=== PATIENT | female | born 1950 | race Caucasian/White ===

== ENCOUNTER 2018-08-11 17:44 | Inpatient (IN) | payer BC, MEDICARE ==
[~2018-08-11] VITALS: Ht 165.1 cm; Wt 54.9 kg
[~2018-08-11 17:44] MED LIST: ATOR10TA PO; DIPH1TAB PO; HYDR-4384 PO; INSU100V27 SQ; INSU100V7 SQ; LEVO100T9 PO; LOPE2CAP40 PO; MAGN200T5 PO; MAGN400T6 PO; MESA500C PO; METF-440 PO; VALS160T2 PO; VALS160T29 PO
--- NOTE | 2018-08-11 18:16 | NUR ---
[id number] FRM B&C FOR MORE ALTERED THAN NORMAL X TODAY, BG 189 STUDENT SERVICES DEAN. PT AMERICAN-SPEAKING, WITH SOME UNDERSTANDING OF [place]. ABLE TO ANSWER SOME QUESTIONS APPROPRIATELY. AOX2, SLIGHTLY TACHYCARDIC, RR EVEN AND UNLABORED ON RA. SKIN INTACT, NO ACUTE DISTRESS NOTED. READY FOR EVAL.
--- NOTE | 2018-08-11 18:27 | NUR ---
XRAY AT BEDSIDE
[2018-08-11 18:40] LABS: BASOPHILS # (AUTO) 0.1 /CMM (0.0-0.2); BASOPHILS % (AUTO) 0.7 % (0.0-2.0); EOSINOPHILS % (AUTO) 0.3 % (0.0-6.0); HEMATOCRIT 39 % (33-45); LYMPHOCYTES # (AUTO) 1.8 /CMM (0.8-4.8); LYMPHOCYTES % (AUTO) 14.3 % (20.0-44.0); MEAN CORPUSCULAR HGB CONC 33 g/dl (31.0-36.0); MEAN CORPUSCULAR VOLUME 93 fL (82-100); MONOCYTES # (AUTO) 1.9 /CMM (0.1-1.30); MONOCYTES % (AUTO) 15.1 % (2.0-12.0); NEUTROPHILS # (AUTO) 8.9 /CMM (1.8-8.9); NEUTROPHILS % (AUTO) 69.6 % (43.0-81.0); PLATELET COUNT (AUTO) 445 /CMM (150-450); RED BLOOD CELL COUNT(AUTO) 4.19 MIL/uL (4.0-5.2); WHITE BLOOD COUNT (AUTO) 12.7 K/uL (4.3-11.0)
--- NOTE | 2018-08-11 18:47 | NUR ---
URINE COLLECTED VIA STRAIGHT CATH PER PROTOCOL AND SENT TO STAT LAB
[2018-08-11 18:53] LABS: BILIRUBIN,URINE LARGE (NEGATIVE); BLOOD, URINE Small Ery/uL (NEGATIVE); COLOR,URINE Yellow (YELLOW); KETONES,URINE >=160 (NEGATIVE); LEUKOCYTE ESTERASE ,URINE Small (NEGATIVE); NITRITE, URINE Negative (NEGATIVE); PROTEIN,URINE 30 mg/dl (NEGATIVE); UGLUCOSE 500 MG/DL mg/dL (NEGATIVE); UROBILINOGEN,URINE 0.2 EU/dL (0.2)
[2018-08-11 18:54] LABS: CALCIUM, SERUM 9.9 mg/dL (8.5-10.1); CARBON DIOXIDE 26 mmol/L (21-32); CHLORIDE 104 mmol/L (98-107); CREATININE 1.2 mg/dL (0.6-1.3); GLUCOSE 201 mg/dL (74-106); SODIUM SERUM 141 mmol/L (136-145); UREA NITROGEN, BLOOD 26 mg/dL (7-18)
[2018-08-11 19:01] LABS: APPEARANCE,URINE SLIGHTLY HAZY (CLEAR)
[2018-08-11 19:08] LABS: ALANINE AMINOTRANSFERASE 17 U/L (12-78); ALBUMIN 2.5 g/dL (3.4-5.0); ALKALINE PHOSPHATASE 112 U/L (46-116); ASPARTATE AMINOTRANSFERASE 21 U/L (15-37); BILIRUBIN,TOTAL 0.3 mg/dL (0.2-1.0); TOTAL PROTEIN, SERUM 7.7 g/dL (6.4-8.2)
[2018-08-11 19:10] LABS: BACTERIA,URINE Moderate /HPF (None Seen); SQUAMOUS EPITHELIAL CELL,UR Few /HPF (None Seen)
[2018-08-11 19:17] LABS: LYMPHOCYTES % (MANUAL) 15 % (16-48); NEUTROPHILS % (MANUAL) 69 (42-76)
[2018-08-11 19:18] LABS: EOSINOPHILS % (MANUAL) 1 % (0-4); MONOCYTES % (MANUAL) 15 % (0-11.0)
[2018-08-11] MEDS ORDERED: LEVO112T7 PO (19:33)
[2018-08-11] MEDS ORDERED: TEMA15CA PO (19:33)
[2018-08-11] MEDS ORDERED: INSU100V27 SQ ×2 (19:33→19:50)
[2018-08-11] MEDS ORDERED: DIVA250T PO (19:33)
[2018-08-11] MEDS ORDERED: MEMA10TA21 PO (19:33)
[2018-08-11] MEDS ORDERED: PIOG15TA8 PO (19:33)
[2018-08-11] MEDS ORDERED: VALP250C PO (19:33)
[2018-08-11] MEDS ORDERED: FERR325T23 PO (19:33)
[2018-08-11] MEDS ORDERED: ONDA4TAB10 PO (19:33)
[2018-08-11] MEDS ORDERED: INSU100I26 SQ ×2 (19:33)
[2018-08-11] MEDS ORDERED: PANT40TA4 PO (19:33)
--- NOTE | 2018-08-11 19:33 | NUR ---
BED 115-2
--- NOTE | 2018-08-11 19:47 | NUR ---
Patient is resting comfortably in bed with eyes closed. Easily aroused. VSS
--- NOTE | 2018-08-11 20:20 | NUR ---
REPORT GIVEN TO CLIFFORD JEAN-BAPTISTE FOR NITHYA, ISAIAS 108
[2018-08-11] MEDS ORDERED: CEFTRIAXONE 1GM BAG (ER ONLY) 50 ML IV ONE ×2 (20:23→20:41)
[2018-08-11] MEDS ORDERED: CEFTRIAXONE 1GM BAG (ER ONLY) 1 GM/50 ML PIGGYBACK IV ONE (20:30)
--- NOTE | 2018-08-11 20:57 | NUR ---
[facility]
[2018-08-11 21:00] VITALS: BP 167/85
[2018-08-11] MEDS ORDERED: IV NS 0.9% 500 ML BAG IV ONE (21:00)
[2018-08-11] MEDS ORDERED: ONDANSETRON HCL/PF 4 MG/2 ML VIAL IVP PRN (21:30)
[2018-08-11] MEDS ORDERED: ACETAMINOPHEN 325 MG TABLET PO PRN (21:30)
[2018-08-11] MEDS ORDERED: MAGNESIUM HYDROXIDE 30 ML UDC PO PRN (21:30)
[2018-08-11] MEDS ORDERED: Z GUARD REMEDY 2 OZ OINT TP PRN (21:30)
[2018-08-11] MEDS ORDERED: MAG HYDROX/AL HYDROX/SIMETH 30 ML UDC PO PRN (21:30)
[2018-08-11] MEDS ORDERED: HYDROCODONE/APAP 5/325MG 1 EACH TABLET PO PRN (21:30)
--- NOTE | 2018-08-11 21:30 | NUR ---
EARLY INTERVENTION SPECIALIST OPENING NOTES RECEIVED REPORT FROM HOME HEALTH SCHEDULER & ADMITTED PATIENT TO ROOM 108 W/ DX ALTERED MENTAL STATUS UNDER CARE OF DAPHNIE MARIE. PATIENT A/A/O X1 TO NAME AND MOSTLY PARAGUAYAN-SPEAKING BUT ABLE TO FOLLOW SIMPLE COMMANDS & STATE PAIN. BREATHING EVEN & UNLABORED, TOLERATING O2 @ 2LPM VIA NC. NO RESPIRATORY DISTRESS NOTED. ON TELE W/ SINUS RHYTHM, HR 90S. LEFT WRIST IV #20 INTACT & PATENT W/ DRESSING CDI, NO SIGNS OF INFILTRATION NOTED. DENIES ANY PAIN OR DISCOMFORT @ THIS TIME. SKIN ASSESSMENT DONE & ORIENTED TO ROOM & STAFF. SAFETY MEASURES IN PLACE W/ SIDE RAILS UP & BED ALARM ON. CALL LIGHT PLACED WITHIN REACH & INSTRUCTED TO USE CALL LIGHT FOR ASSISTANCE. WILL CONTINUE TO MONITOR & CARRY OUT ADMITTING ORDERS.
[2018-08-11] MEDS: TEMAZEPAM 15 MG CAPSULE PO SCH (22:00)
[2018-08-11] MEDS: BLOOD SUGAR DIAGNOSTIC 1 EACH STRIP IN SCH (22:00)
[2018-08-11] MEDS: INSULIN REGULAR, HUMAN 100 UNIT/ML 3 ML VIAL SQ PRN (23:16)
[2018-08-11] MEDS: ATORVASTATIN 10 MG TABLET PO SCH (23:18)
[2018-08-12] VITALS: BP 160/83
[2018-08-12] MEDS: IV NS 0.9% 1,000 ML IV PRN ×2 (03:46→16:51)
[2018-08-12 04:00] VITALS: BP 140/78
--- NOTE | 2018-08-12 06:30 | NUR ---
HOUSING OFFICER NOTES SPOKE TO DAPHNIE MARIE REGARDING CHANGING THE FREQUENCY OF PATIENT'S HOME MED, DEPAKOTE TO Q12H INSTEAD OF DAILY. PER DAPHNIE, INFORM ATTENDING MD IN AM. ENDORSED TO AM NURSE.
[2018-08-12 07:39] LABS: BASOPHILS % (AUTO) 0.4 % (0.0-2.0); EOSINOPHILS % (AUTO) 0.3 % (0.0-6.0); HEMATOCRIT 36 % (33-45); HEMOGLOBIN 11.8 g/dL (11.5-14.8); LYMPHOCYTES # (AUTO) 1.6 /CMM (0.8-4.8); LYMPHOCYTES % (AUTO) 13.9 % (20.0-44.0); MEAN CORPUSCULAR HGB CONC 33 g/dl (31.0-36.0); MEAN CORPUSCULAR VOLUME 93 fL (82-100); MONOCYTES # (AUTO) 1.4 /CMM (0.1-1.30); MONOCYTES % (AUTO) 12.4 % (2.0-12.0); NEUTROPHILS # (AUTO) 8.4 /CMM (1.8-8.9); PLATELET COUNT (AUTO) 356 /CMM (150-450); RED BLOOD CELL COUNT(AUTO) 3.85 MIL/uL (4.0-5.2); WHITE BLOOD COUNT (AUTO) 11.5 K/uL (4.3-11.0)
[2018-08-12 08:00] VITALS: BP 154/72
[2018-08-12 08:00] LABS: THYROID STIMULATING HORMONE 1.916 uIU/mL (0.358-3.74)
--- NOTE | 2018-08-12 08:00 | NUR ---
RN NOTE: RECEIVED PATIENT IN BED, ASLEEP, BUT AROUSABLE WITH TACTILE STIMULATION. RESPIRATION EVEN AND UNLABORED, SATURATING 98% WITH O2 2L/MIN VIA NC. ON MILL HOUSE SUPERVISOR SR HR= 86. NO FACIAL GRIMACING AND DENIED ANY PAIN OR DISCOMFORT. BREAKFAST WAS OFFERED, BUT PATIENT ATE 25% OF HER MEAL AND STARTED CLENCHING HER TEETH AND STATED "NO MORE. I DON'T WANT TO EAT ANY MORE." SPOKE WITH DAUGHTER THANIA AND INFORMED HER ABOUT IT, SHE INSISTED THAT PATIENT NEEDED TO BE ENCOURAGED MORE TO EAT. SHE ALSO VERBALIZED THAT SHE DOES NOT WANT ANY PSYCHOTROPIC MEDICATIONS TO THE PATIENT. AND SHE WANTED TO INFORM THE DOCTOR ABOUT HER MOTHER GETTING UTI A FEW MONTHS AGO. WILL RELAY THIS INFORMATION TO Lester BROWN NP WHEN HE MAKES HIS ROUNDS TO THE UNIT. (L) WRIST IV SITE WAS NOTED INTACT AND PATENT INFUSING NS@75ML/HR. BED ALARMED AND LOCKED AT ALL TIMES. CALL LIGHT WITHIN REACH. NEEDS ANTICIPATED.
[2018-08-12] MEDS: BLOOD SUGAR DIAGNOSTIC 1 EACH STRIP IN SCH ×4 (08:10→22:34)
[2018-08-12 08:19] LABS: CALCIUM, SERUM 9.4 mg/dL (8.5-10.1); CREATININE 1.2 mg/dL (0.6-1.3); MAGNESIUM 1.8 mg/dL (1.8-2.4); PHOSPHORUS 2.8 mg/dL (2.5-4.9); POTASSIUM 3.8 mmol/L (3.5-5.1)
[2018-08-12] MEDS: LEVOTHYROXINE SODIUM 112 MCG TABLET PO SCH (08:20)
[2018-08-12] MEDS: PANTOPRAZOLE 40 MG TABLET.DR PO SCH (08:20)
[2018-08-12] MEDS: INSULIN REGULAR, HUMAN 100 UNIT/ML 3 ML VIAL SQ PRN ×2 (08:24→12:32)
--- NOTE | 2018-08-12 08:55 | NUR ---
RN NOTE: RECEIVED A CRITICAL LAB FOR GLUCOSE 353 AND Lester BROWN DNP WAS IN THE UNIT. Lester BROWN DNP WAS INFORMED OF THE GLUCOSE 353 AND THE CURRENT MEDICATIONS OF THE PATIENT. Lester BROWN DNP WITH NO NEW ORDER AT THIS TIME.
[2018-08-12] MEDS ORDERED: VALSARTAN 80 MG TABLET PO PRN (09:00)
[2018-08-12] MEDS ORDERED: DIVALPROEX SODIUM 250 MG PO SCH (09:00)
[2018-08-12] MEDS: PIOGLITAZONE HCL 15 MG TABLET PO SCH (09:49)
[2018-08-12] MEDS: MAGNESIUM OXIDE 400 MG TABLET PO SCH (09:50)
[2018-08-12] MEDS: FERROUS SULFATE (325 MG) 325 MG/TAB TABLET PO SCH (09:50)
[2018-08-12] MEDS: MEMANTINE HCL 5 MG TABLET PO SCH ×2 (09:50→16:18)
[2018-08-12] MEDS: ENOXAPARIN SODIUM 40 MG/0.4 ML DISP.SYRIN SQ SCH (09:52)
[2018-08-12] MEDS: VALPROIC ACID 250 MG/5 ML UDC PO SCH ×2 (09:55→16:18)
[2018-08-12] MEDS: INSULIN GLARGINE, 100 UNIT/ML CARTRIDGE SQ SCH ×2 (09:59→17:51)
[2018-08-12 12:00] VITALS: BP 159/72
[2018-08-12 16:00] VITALS: BP 140/73
--- NOTE | 2018-08-12 17:53 | NUR ---
RN NOTE: Lester BROWN DNP WAS INFORMED ABOUT THE BLOOD SUGAR OF 78. DNP OK TO HOLD THE DOSE OF LANT[facility] 12 UNIT @ 1800.
[2018-08-12] MEDS ORDERED: INSULIN GLARGINE, 100 UNIT/ML CARTRIDGE SQ SCH (18:00)
[2018-08-12 20:00] VITALS: BP 145/83
--- NOTE | 2018-08-12 20:00 | NUR ---
RN NOTE: BEDSIDE REPORT WAS GIVEN TO PM SHIFT NURSE FOR CONTINUITY OF CARE AND DAUGHTER THANIA WAS PRESENT AT THE BEDSIDE.
[2018-08-12] MEDS: CEFTRIAXONE 1 G in IV D5W 50 ML IV SCH (21:36)
[2018-08-12] MEDS: TEMAZEPAM 15 MG CAPSULE PO SCH (22:33)
[2018-08-12] MEDS: ATORVASTATIN 10 MG TABLET PO SCH (22:34)
[2018-08-13] VITALS: BP 129/80
[2018-08-13 04:00] VITALS: BP 120/70
--- NOTE | 2018-08-13 07:30 | NUR ---
INITIAL PATIENT IN BED SLEEPING BUT AROUSIBLE W/ DX ALTERED MENTAL STATUS UNDER CARE OF DAPHNIE MARIE. PATIENT A/A/O X1 TO NAME ABLEE TO FOLLOW SIMPLE COMMANDS & STATE PAIN. BREATHING EVEN & UNLABORED, TOLERATING O2 @ 2LPM VIA NC. NO RESPIRATORY DISTRESS NOTED. ON TELE W/ SINUS RHYTHM, HR 67. LEFT WRIST IV #20 INTACT & PATENT W/ DRESSING CDI, NO SIGNS OF INFILTRATION NOTED. DENIES ANY PAIN OR DISCOMFORT @ THIS TIME. SKIN ASSESSMENT DONE & ORIENTED TO ROOM & STAFF. SAFETY MEASURES IN PLACE W/ SIDE RAILS UP & BED ALARM ON. CALL LIGHT PLACED WITHIN REACH & INSTRUCTED TO USE CALL LIGHT FOR ASSISTANCE. WILL CONTINUE TO MONITOR.
[2018-08-13 08:00] VITALS: BP 113/66
[2018-08-13] MEDS: PANTOPRAZOLE 40 MG TABLET.DR PO SCH (08:02)
[2018-08-13] MEDS: LEVOTHYROXINE SODIUM 112 MCG TABLET PO SCH (08:02)
[2018-08-13] MEDS: IV NS 0.9% 1,000 ML IV PRN ×2 (08:11→21:29)
[2018-08-13] MEDS: BLOOD SUGAR DIAGNOSTIC 1 EACH STRIP IN SCH ×4 (08:11→21:24)
[2018-08-13] MEDS: INSULIN REGULAR, HUMAN 100 UNIT/ML 3 ML VIAL SQ PRN ×3 (08:16→17:38)
--- NOTE | 2018-08-13 08:38 | NUR ---
WOUND CARE CONSULT: PT PRESENTS WITH INCONTINENCE AND RASH WITH SKIN IRRITATION TO BUTTOCKS, PERINEUM AND GROIN AREAS, PRESENT ON ADMISSION. RECOMMENDATIONS MADE FOR SKIN CARE AND PROTECTION. DISCUSSED WITH NURSING STAFF. WILL SEE PRN. FARLEY IN AGREEMENT WITH PLAN OF CARE. CURRENT CURTIS SCORE IS 14. Addendum: 08/13/18 at 0839 by ISA SIMON WNDNU Amended: Links added.
[2018-08-13] MEDS: MAGNESIUM OXIDE 400 MG TABLET PO SCH (09:35)
[2018-08-13] MEDS: PIOGLITAZONE HCL 15 MG TABLET PO SCH (09:35)
[2018-08-13] MEDS: VALPROIC ACID 250 MG/5 ML UDC PO SCH ×2 (09:35→17:31)
[2018-08-13] MEDS: MEMANTINE HCL 5 MG TABLET PO SCH ×2 (09:36→17:31)
[2018-08-13] MEDS: FERROUS SULFATE (325 MG) 325 MG/TAB TABLET PO SCH (09:36)
[2018-08-13] MEDS: ENOXAPARIN SODIUM 40 MG/0.4 ML DISP.SYRIN SQ SCH (09:38)
[2018-08-13] MEDS: INSULIN GLARGINE, 100 UNIT/ML CARTRIDGE SQ SCH ×2 (09:39→17:44)
[2018-08-13] MEDS: CLOTRIMAZOLE 1% 15 GM TUBE TP SCH ×2 (09:51→17:32)
[2018-08-13 12:00] VITALS: BP_SYST 115; BP_DIAS 65; BP_DIAS 67
--- NOTE | 2018-08-13 15:18 | NUR ---
SPOKE WITH DAUGHTER THANIA CALDERON WHO HAS DPOA AND CONSENTED FOR COUSIN THANIA STEPHENS TO HAVE PT INFORMATION UPDATES.
[2018-08-13 16:00] VITALS: BP_SYST 101; BP_SYST 117; BP_DIAS 64; BP_DIAS 68
--- NOTE | 2018-08-13 18:16 | NUR ---
closing Patient is resting comfortably in bed with eyes closed. Easily aroused. VSS all needs attended to pt ate 50% of all meals remains on 1/2 N/S at 75 ml/hr iv site clean dry intact will endorse care to table games shift manager RN for continuity of care
--- NOTE | 2018-08-13 19:40 | NUR ---
RN INITIAL NOTES RECEIVED PATIENT REPORT FROM AM RN. PATIENT IN BED SLEEPING BUT AROUSAL WITH SPEECH. W/ DX ALTERED MENTAL PATIENT A/A/O X1 TO NAME ABLE TO FOLLOW SIMPLE COMMANDS & STATE PAIN . BREATHING EVEN & UNLABORED, TOLERATING O2 @ 2LPM VIA NC. NO RESPIRATORY DISTRESS NOTED. LEFT WRIST IV #20 INTACT & PATENT W/ DRESSING CDI WITH IVF ORDERED, NO SIGNS OF INFILTRATION NOTED. DENIES ANY PAIN OR DISCOMFORT @ THIS TIME. SKIN ASSESSMENT DONE & ORIENTED TO ROOM, UNIT & STAFF. SAFETY MEASURES IN PLACE W/ SIDE RAILS UPX2 & BED ALARM ON. CALL LIGHT PLACED WITHIN REACH & INSTRUCTED TO USE CALL LIGHT FOR ASSISTANCE. WILL CONTINUE TO MONITOR PATIENT CLOSELY.
[2018-08-13 20:00] VITALS: BP 116/75
[2018-08-13] MEDS: CEFTRIAXONE 1 G in IV D5W 50 ML IV SCH (21:22)
[2018-08-13] MEDS: TEMAZEPAM 15 MG CAPSULE PO SCH (21:23)
[2018-08-13] MEDS: ATORVASTATIN 10 MG TABLET PO SCH (21:24)
[2018-08-13] MEDS: DEXTROSE 50%-WATER 50 ML DISP.SYRIN IV PRN (21:36)
[2018-08-14 04:00] VITALS: BP 120/66
[2018-08-14 07:02] LABS: BASOPHILS # (AUTO) 0.1 /CMM (0.0-0.2); BASOPHILS % (AUTO) 0.9 % (0.0-2.0); EOSINOPHILS % (AUTO) 1.6 % (0.0-6.0); HEMATOCRIT 37 % (33-45); HEMOGLOBIN 12.4 g/dL (11.5-14.8); LYMPHOCYTES # (AUTO) 1.8 /CMM (0.8-4.8); LYMPHOCYTES % (AUTO) 26.1 % (20.0-44.0); MEAN CORPUSCULAR HGB CONC 34 g/dl (31.0-36.0); MEAN CORPUSCULAR VOLUME 93 fL (82-100); MONOCYTES # (AUTO) 0.7 /CMM (0.1-1.30); MONOCYTES % (AUTO) 10.6 % (2.0-12.0); NEUTROPHILS # (AUTO) 4.2 /CMM (1.8-8.9); NEUTROPHILS % (AUTO) 60.8 % (43.0-81.0); PLATELET COUNT (AUTO) 303 /CMM (150-450); RED BLOOD CELL COUNT(AUTO) 3.95 MIL/uL (4.0-5.2)
[2018-08-14 07:20] LABS: CALCIUM, SERUM 8.9 mg/dL (8.5-10.1); CREATININE 0.6 mg/dL (0.6-1.3); POTASSIUM 3.9 mmol/L (3.5-5.1)
[2018-08-14 08:00] VITALS: BP_SYST 104; BP_SYST 133; BP_DIAS 59; BP_DIAS 65
[2018-08-14] MEDS: BLOOD SUGAR DIAGNOSTIC 1 EACH STRIP IN SCH ×4 (08:23→21:38)
[2018-08-14] MEDS: VALPROIC ACID 250 MG/5 ML UDC PO SCH ×2 (08:24→17:42)
[2018-08-14] MEDS: PIOGLITAZONE HCL 15 MG TABLET PO SCH (08:24)
[2018-08-14] MEDS: LEVOTHYROXINE SODIUM 112 MCG TABLET PO SCH (08:24)
[2018-08-14] MEDS: MAGNESIUM OXIDE 400 MG TABLET PO SCH (08:24)
[2018-08-14] MEDS: MEMANTINE HCL 5 MG TABLET PO SCH ×2 (08:24→17:42)
[2018-08-14] MEDS: FERROUS SULFATE (325 MG) 325 MG/TAB TABLET PO SCH (08:24)
[2018-08-14] MEDS: PANTOPRAZOLE 40 MG TABLET.DR PO SCH (08:24)
[2018-08-14] MEDS: ENOXAPARIN SODIUM 40 MG/0.4 ML DISP.SYRIN SQ SCH (08:25)
[2018-08-14] MEDS: INSULIN GLARGINE, 100 UNIT/ML CARTRIDGE SQ SCH (10:51)
[2018-08-14] MEDS: CLOTRIMAZOLE 1% 15 GM TUBE TP SCH ×2 (10:56→17:55)
[2018-08-14 12:00] VITALS: BP 133/65
[2018-08-14 16:00] VITALS: BP 104/59
[2018-08-14] MEDS ORDERED: INSULIN GLARGINE, 100 UNIT/ML CARTRIDGE SQ SCH (18:00)
--- NOTE | 2018-08-14 18:00 | NUR ---
INITIAL BLOOD SUGAR 39, REPEAT 48. D50 GIVEN. JOSESITO BROWN COMMUNICATIONS TECHNICIAN NOTIFIED. RECEIVED ORDERS.
[2018-08-14] MEDS: DEXTROSE 50%-WATER 50 ML DISP.SYRIN IV PRN (18:17)
[2018-08-14] MEDS: INSULIN REGULAR, HUMAN 100 UNIT/ML 3 ML VIAL SQ PRN ×2 (18:24→21:37)
[2018-08-14] MEDS ORDERED: IV D5/ 0.9% NACL 1,000 ML IV ONE (18:30)
--- NOTE | 2018-08-14 19:02 | NUR ---
RECHECK BLOOD SUGAR 167
[2018-08-14 20:00] VITALS: BP 95/46
[2018-08-14] MEDS: ATORVASTATIN 10 MG TABLET PO SCH (21:21)
[2018-08-14] MEDS: TEMAZEPAM 15 MG CAPSULE PO SCH (21:21)
[2018-08-15 04:00] VITALS: BP 129/61
[2018-08-15 05:00] VITALS: BP 129/61
[2018-08-15] MEDS: BLOOD SUGAR DIAGNOSTIC 1 EACH STRIP IN SCH ×4 (06:16→21:23)
[2018-08-15] MEDS: INSULIN REGULAR, HUMAN 100 UNIT/ML 3 ML VIAL SQ PRN ×3 (06:18→21:41)
[2018-08-15 06:20] LABS: APPEARANCE,URINE CLEAR (CLEAR); BILIRUBIN,URINE NEGATIVE (NEGATIVE); BLOOD, URINE 2+ Ery/uL (NEGATIVE); COLOR,URINE YELLOW (YELLOW); KETONES,URINE TRACE (NEGATIVE); LEUKOCYTE ESTERASE ,URINE TRACE (NEGATIVE); NITRITE, URINE NEGATIVE (NEGATIVE); PROTEIN,URINE TRACE mg/dl (NEGATIVE); UGLUCOSE NEGATIVE (NEGATIVE); UROBILINOGEN,URINE 0.2 EU/dL (0.2)
[2018-08-15 07:38] LABS: BACTERIA,URINE Rare /HPF (None Seen); SQUAMOUS EPITHELIAL CELL,UR Rare /HPF (None Seen)
[2018-08-15 08:00] VITALS: BP 127/58
--- NOTE | 2018-08-15 08:00 | NUR ---
MS1/RN AM SHIFT INITIAL NOTES RECEIVED PT AWAKE IN BED, PT ALERT, CONVERSANT AND PLEASANT, NOTED WITH SOME CONFUSION, DENIES ANY SYMPTOMS, NO ACUTE CHANGE OF CONDITION NOTED. ON ROOM AIR SATURATING @ 95%, RESPIRATIONS EVEN AND UNLABORED. IV SITE FLUSHED, PATENT WITH NO S/S OF INFECTION, INFUSION OF D5NS TURNED OFF D/T NOTED ELEVATED BLOOD GLUCOSE, NO S/S OF HYPERGLYCEMIA, WILL FOLLOW-UP WITH PRIMARY MD. PT IS COMFORTABLE, SCHEDULED AM MEDS TO BE GIVEN. CL WITHIN REACHED AND SAFETY MAINTAINED. ON GOING MONITORING.
[2018-08-15] MEDS: ENOXAPARIN SODIUM 40 MG/0.4 ML DISP.SYRIN SQ SCH (08:28)
[2018-08-15] MEDS: MAGNESIUM OXIDE 400 MG TABLET PO SCH (08:29)
[2018-08-15] MEDS: PANTOPRAZOLE 40 MG TABLET.DR PO SCH (08:29)
[2018-08-15] MEDS: MEMANTINE HCL 5 MG TABLET PO SCH ×2 (08:29→16:43)
[2018-08-15] MEDS: LEVOTHYROXINE SODIUM 112 MCG TABLET PO SCH (08:29)
[2018-08-15] MEDS: VALPROIC ACID 250 MG/5 ML UDC PO SCH ×2 (08:29→16:43)
[2018-08-15] MEDS: FERROUS SULFATE (325 MG) 325 MG/TAB TABLET PO SCH (08:29)
[2018-08-15] MEDS: PIOGLITAZONE HCL 15 MG TABLET PO SCH (08:29)
[2018-08-15] MEDS: CLOTRIMAZOLE 1% 15 GM TUBE TP SCH ×2 (08:31→16:43)
--- NOTE | 2018-08-15 12:00 | NUR ---
MS1/RN NOON ROUNDS PT SEEN & EXAMINED BY LUIZ BROWN, WITH NEW ORDERS NOTED FOR PSYCH CONSULT AND KEFLEX. NOTED AND CARRIED. NO ACUTE CHANGE OF CONDITION NOTED AT THIS TIME. MONITORING CONTINUED.
[2018-08-15] MEDS: CEPHALEXIN MONOHYDRATE 500 MG CAPSULE PO SCH ×2 (12:44→21:23)
--- NOTE | 2018-08-15 14:30 | NUR ---
MS1/RN ROUNDS - DR. SCHMITT UPDATED PT'S CONDITION. PT SEEN & EXAMINED BY DR. SCHMITT, NO NEW ORDER RECEIVED AT THIS TIME.
[2018-08-15 16:00] VITALS: BP 125/60
[2018-08-15] MEDS: MEGESTROL ACETATE 40 MG TABLET PO SCH (16:43)
--- NOTE | 2018-08-15 16:52 | NUR ---
MS1/RN AFTERNOON ROUNDS PM CARE PROVIDED, NO ACUTE CHANGE OF CONDITION. ON GOING MONITORING.
--- NOTE | 2018-08-15 19:13 | NUR ---
MS1/RN AM SHIFT END NOTES ALL NEEDS MET. NO ACUTE CHANGE OF CONDITION NOTED DURING THE SHIFT. PT ENDORSED TO PM NURSE TO CONTINUE CARE. CL WITHIN REACHED AND SAFETY MAINTAINED.
--- NOTE | 2018-08-15 19:30 | NUR ---
MS RN OPENING NOTES PM: RECEIVED PT AWAKE IN BED, PT ALERT, CONVERSANT AND T, BLUNT AFFECT NOTED, BUT DOES FOLLOW COMMANDS AND RESPONDS WELL. DENIES ANY SYMPTOMS, NO ACUTE CHANGE OF CONDITION NOTED. ON ROOM AIR SATURATING @ 95%, RESPIRATIONS EVEN AND UNLABORED. IV SITE FLUSHED, PATENT WITH NO S/S OF INFECTION, INFUSION OF D5NS TURNED OFF D/T NOTED ELEVATED BLOOD GLUCOSE, NO S/S OF HYPERGLYCEMIA, WILL FOLLOW-UP WITH PRIMARY MD. PT IS COMFORTABLE, SCHEDULED AM MEDS TO BE GIVEN. CL WITHIN REACHED AND SAFETY MAINTAINED. ON GOING MONITORING Addendum: 08/15/18 at 2 by TASHIA HEREDIA RN MS RN OPENING NOTES PM: RECEIVED PT AWAKE IN BED, PT ALERT, CONVERSANT AND T, BLUNT AFFECT NOTED, BUT DOES FOLLOW COMMANDS AND RESPONDS WELL. DENIES ANY SYMPTOMS, NO ACUTE CHANGE OF CONDITION NOTED. ON ROOM AIR SATURATING @ 95%, RESPIRATIONS EVEN AND UNLABORED. IV SITE FLUSHED, PATENT WITH NO S/S OF INFECTION, INFUSION OF D5NS TURNED OFF D/T NOTED ELEVATED BLOOD GLUCOSE, NO S/S OF HYPERGLYCEMIA, WILL FOLLOW-UP WITH PRIMARY MD. , SCHEDULED PM PSYCH MEDS TO BE GIVEN. CL WITHIN REACHED AND WILL MAINTAIN SAFETY AND MONITORING AND CARRY OUT PLAN OF CARE.
[2018-08-15 20:00] VITALS: BP 107/56
--- NOTE | 2018-08-15 20:30 | NUR ---
MS/RN OPENING NOTES BEDSIDE REPORT DONE WITH RN, TASHIA. PT IS ASLEEP, RESPONSIVE TO NAME. A/OX2. ON ROOM AIR, BREATHING EVEN AND UNLABORED. DENIES PAIN, NO S/S OF SOB NOTED. IN NO ACUTE RESPIRATORY DISTRESS. IV TO LEFT WRIST PATENT AND INTACT, SALINE LOCKED. HOB ELEVATED. BED IN LOW/LOCKED POSITION WITH CALL LIGHT IN REACH. SIDE RAILS UPX3 AND BED ALARM ON FOR SAFETY. WILL CONTINUE TO MONITOR
[2018-08-15] MEDS: TEMAZEPAM 15 MG CAPSULE PO SCH (21:23)
[2018-08-15] MEDS: ATORVASTATIN 10 MG TABLET PO SCH (21:23)
[2018-08-15] MEDS ORDERED: MIRTAZAPINE 15 MG TABLET PO SCH (22:00)
[2018-08-16 04:00] VITALS: BP 139/64
--- NOTE | 2018-08-16 06:57 | NUR ---
MS/RN CLOSING NOTES PT RESTING COMFORTABLY IN BED, RESPONSIVE TO NAME. REMAINS CONFUSED. ON ROOM AIR, BREATHING EVEN AND UNLABORED. NO S/S OF SOB, DENIES PAIN AT THIS TIME. IV TO LEFT WRIST PATENT AND INTACT. SNACKS PROVIDED THROUGHOUT SHIFT. NO SIGNIFICANT CHANGES OVERNIGHT. ALL NEEDS MET AND ANTICIPATED. TURNED/REPOSITION Q2H, HEELS OFFLOADED. BED REMAINS IN LOW/LOCKED POSITION WITH CALL LIGHT IN REACH, BED ALARM ON. SIDE RAILS UPX3. WILL ENDORSE TO DAY SHIFT RN NITHYA.
--- NOTE | 2018-08-16 07:25 | NUR ---
RN OPENING NOTES RECEIVED PATIENT IN BED SLEEPING COMFORTABLY. EASILY AROUSABLE. ABLE TO RESPOND TO VERBAL AND TACTILE STIMULI. PATIENT IS ALERT AND ORIENTED X1. NO PAIN OR ACUTE DISTRESS AT THIS TIME. RESPIRATION EVEN AND UNLABORED. SKIN IS DRY WARM TO TOUCH. PATIENT NOTED WITH IV ACCESS ON LEFT WRIST. PATENT AND INTACT, SALINE LOCKED. FLUSHING WELL. HOB ELEVATED. ALL NEEDS ANTICIPATED. CALL LIGHT WITHIN REACHED. BED LOCKED AND IN LOWEST POSITION. SAFETY MEASURES MAINTAINED. PLAN OF CARE DISCUSSED. WILL CONTINUE TO MONITOR CLOSELY.
[2018-08-16] MEDS: BLOOD SUGAR DIAGNOSTIC 1 EACH STRIP IN SCH ×3 (07:43→16:47)
[2018-08-16] MEDS: LEVOTHYROXINE SODIUM 112 MCG TABLET PO SCH (07:47)
[2018-08-16] MEDS: PANTOPRAZOLE 40 MG TABLET.DR PO SCH (07:47)
[2018-08-16 08:00] VITALS: BP 116/66
[2018-08-16] MEDS: FERROUS SULFATE (325 MG) 325 MG/TAB TABLET PO SCH (09:23)
[2018-08-16] MEDS: VALPROIC ACID 250 MG/5 ML UDC PO SCH ×2 (09:23→16:48)
[2018-08-16] MEDS: MEGESTROL ACETATE 40 MG TABLET PO SCH ×2 (09:23→16:47)
[2018-08-16] MEDS: CEPHALEXIN MONOHYDRATE 500 MG CAPSULE PO SCH (09:23)
[2018-08-16] MEDS: MEMANTINE HCL 5 MG TABLET PO SCH ×2 (09:24→16:48)
[2018-08-16] MEDS: MAGNESIUM OXIDE 400 MG TABLET PO SCH (09:24)
[2018-08-16] MEDS: PIOGLITAZONE HCL 15 MG TABLET PO SCH (09:24)
[2018-08-16] MEDS: CLOTRIMAZOLE 1% 15 GM TUBE TP SCH ×2 (09:25→16:47)
[2018-08-16] MEDS: ENOXAPARIN SODIUM 40 MG/0.4 ML DISP.SYRIN SQ SCH (09:26)
[2018-08-16] MEDS: INSULIN REGULAR, HUMAN 100 UNIT/ML 3 ML VIAL SQ PRN ×3 (09:41→16:55)
[2018-08-16 10:00] VITALS: BP 116/66
[2018-08-16] MEDS ORDERED: GLUCERNA SHAKE 237 ML CAN PO SCH (12:00)
[2018-08-16 16:00] VITALS: BP 104/40
--- NOTE | 2018-08-16 18:00 | NUR ---
VINYL FLOORING INSTALLER NOTES TWO EMT ARRIVED AT THE UNIT TO TAPE FASTENER MACHINE OPERATOR PATIENT. ALL DISCHARGE PAPERS WAS SIGNED, AND WAS GIVEN TO EMT. PHOTOS WAS TAKEN AND WAS PLACED ON THE CHART FOR RECORDS. REPORT WAS ALSO GIVEN TO EMT AND INFORMED [facility] THAT PATIENT IS COMING BACK TO THEM. PATIENT WAS PLACED IN THE GURNEY. PATIENT LEFT THE UNIT IN STABLE CONDITION.
== END 2018-08-16 18:00 | DRG 871 ==
LOC: ER 17:53 → TELE1 20:35 → MEDSG1 08-13 15:03
PROVIDERS: ADMIT Nurse Practitioner Acute Care; ATTEND Nurse Practitioner Acute Care
DX: A41.9 Sepsis, unspecified organism (principal); G93.41 Metabolic encephalopathy; N17.0 Acute kidney failure with tubular necrosis; E44.0 Moderate protein-calorie malnutrition; N39.0 Urinary tract infection, site not specified; K51.90 Ulcerative colitis, unspecified, without complications; E03.9 Hypothyroidism, unspecified; E78.5 Hyperlipidemia, unspecified; E11.65 Type 2 diabetes mellitus with hyperglycemia; E86.0 Dehydration; Z87.440 Personal history of urinary (tract) infections; I10 Essential (primary) hypertension; B96.89 Other specified bacterial agents as the cause of diseases classified elsewhere; D72.829 Elevated white blood cell count, unspecified; F03.90 Unspecified dementia, unspecified severity, without behavioral disturbance, psychotic disturbance, mood disturbance, and anxiety; R62.7 Adult failure to thrive; Z68.20 Body mass index [BMI] 20.0-20.9, adult; F41.9 Anxiety disorder, unspecified; F20.9 Schizophrenia, unspecified; F32.9 Major depressive disorder, single episode, unspecified
CPT/HCPCS: 36415; 71045-TC; 80048-TC; 80061-TC; 80076-TC; 81000-TC; 82140-TC; 82962-TC; 83605-TC; 83735-TC; 84100-TC; 84443-TC; 84484-TC; 85025-TC; 85730-TC; 87040-TC; 87081-TC; 87086-TC; 97110-TC; 97530-TC; 97535-TC; A6403; G0378; J0696; J1650; J1815; J7030; J7040; J7042; J7060